=== PATIENT | female | born 2000 | race Caucasian/White ===

== ENCOUNTER 2020-05-26 06:08 | Emergency (ER) | payer OTHER, SELFPAY ==
--- NOTE | ~2020-05-26 | CT_ITS ---
EXAMINATION: CT abdomen pelvis w con INDICATION: Abdominal pain and vomiting TECHNIQUE: Computed tomographic images of the abdomen and pelvis were obtained after the administrati on of 100 cc of Omnipaque 350 intravenous contrast. The dose-length product (DLP) was 423.31 mGy-cm. Automated exposure control and iterative reconstruction technique were employed. COMPARISON: None available FINDINGS: The lung bases are clear. The heart size is normal. The liver, spleen, pancreas, gallbladde r, and adrenal glands are normal. There is a 4 mm cyst in the left kidney upper pole. The right kidne y is unremarkable. No pathologically enlarged abdominal or pelvic lymph nodes are identified. There i s no free intraperitoneal gas or evidence of bowel obstruction. There is an appendicolith in the othe rwise normal-appearing appendix. IMPRESSION: 1. No CT correlate for the patient's symptoms. Reviewed, dictated and finalized at location A. ER M[employer]
[2020-05-26 06:12] VITALS: BP 148/93; PULSE 74; RESP 18; TEMP 36.3; O2SAT 98
[2020-05-26] MEDS: ONDANSETRON INJ 4 MG/2 ML VIAL IV PUSH ×2 (06:36→07:42)
[2020-05-26 06:42] LABS: Basophils Percent Auto 0.2 % (0.2-1.2); Hematocrit 42.9 % (37.0-47.0); Hemoglobin 15.3 g/dL (12.0-15.0); Immature Granulocyte Absolute 0.07 K/mm3 (0.00-0.031); Immature Granulocyte Percent A 0.4 % (0-0.5); Lymphocytes Absolute Auto 1.23 K/mm3 (0.9-3.2); Lymphocytes Percent Auto 7.5 % (18.3-44.2); Mean Corpuscular HGB Conc 35.7 g/dl (32-36); Mean Corpuscular Hemoglobin 32.1 pg (26-34); Mean Corpuscular Volume 89.9 fl (80-100); Mean Platelet Volume 10.7 fl (7.4-10.4); Monocytes Absolute Auto 1.6 K/mm3 (0.1-0.6); Monocytes Percent Auto 9.9 % (2.6-8.5); Neutrophils Absolute Auto 13.5 K/mm3 (1.3-6.7); Platelet Count Result 470 k/mm3 (150-375); Red Blood Count 4.77 M/mm3 (4.2-5.4); Red Cell Distribution Width 11.9 % (11.5-14.5); White Blood Count 16.5 K/mm3 (4.5-10.0)
[2020-05-26 06:54] LABS: Alanine Aminotransferase 23 U/L (4-35); Albumin Level 5.2 g/dL (3.5-5.1); Alkaline Phosphatase 78 U/L (38-126); Anion Gap 18 mmol/L (8-16); Aspartate Amino Transferase 26 U/L (14-36); Bilirubin,Total 1.5 mg/dL (0.2-1.3); Blood Urea Nitrogen 16 mg/dL (7-17); Calcium 10.2 mg/dL (8.4-10.2); Carbon Dioxide 24 mmol/L (22-30); Chloride 101 mmol/L (98-107); Estimated CRCL calculation 95 ml/min; Estimated Glomerular Filt Rate > 60; Glucose 131 mg/dL (65-105); Lipase 38 U/L (23-300); Sodium 143 mmol/L (137-145)
[2020-05-26 07:01] LABS: Add Urine Microscopic? YES; Appearance Urine Clear (Clear); Bilirubin Urine Negative (Negative); Blood Urine Negative (Negative); Color Urine Yellow (Yellow); Glucose Urine UA Negative (Negative); Ketones Urine 2+ mg/dL (Negative); Leukocyte Esterase Ur Negative LEU/UL (Negative); Mucus Urine Heavy /lpf; Nitrate Urine Negative (Negative); Protein Urine 2+ mg/dL (Negative); RBC Urine 0-2 /hpf (0-2); Specific Grav Ur 1.035 (1.001-1.035); Squamous Epithelial Cell Urine Few /hpf (Few); Urobilinogen Urine Negative mg/dL (<2.0)
[2020-05-26] MEDS: LACTATED RINGERS 1,000 ML 999 ML IV CONT (07:42)
[2020-05-26] MEDS: PANTOPRAZOLE SODIUM IV 40 MG VIAL IV PUSH (07:42)
--- NOTE | 2020-05-26 07:45 | ED.NAVMDI ---
HPI - Nausea/Vomiting/Diarrhea General Chief complaint: Nausea/Vomiting/Diarrhea Stated complaint: N/V Time Seen by Provider: 05/26/20 07:20 Source: patient Mode of arrival: ambulatory Limitations: no limitations History of Present Illness HPI Narrative: This patient is a 20 year old female who presents for evaluation of nausea and vomiting. She states she woke up with nausea and vomiting yesterday morning. She has continued to have vomiting today , and she is unable to keep anything down. She also reports diffuse abdominal pain, but she denies diarrhea, fever, chills, cough, sob, sore throat, headache or loss of taste or smell. She does admit Wednesday night she drank alot of Related Data Home Medications Medication Instructions Recorded Confirmed No Home Medications 05/26/20 05/26/20 Allergies Allergy/AdvReac Type Severity Reaction Status Date / Time Sulfa (Sulfonamide Allergy Unknown Unknown Verified 05/26/20 06:27 Antibiotics) PMFSH Social History Social History Gender identity (if verbalized by the patient): Female Course Vital Signs Vital signs: Vital Signs Temperature 97.4 F L 05/26/20 06:12 Pulse Rate 74 05/26/20 06:12 Respiratory Rate 18 05/26/20 06:12 Blood Pressure 148/93 H 05/26/20 06:12 Pulse Oximetry 98 05/26/20 06:12 Temperature 97.4 F L 05/26/20 06:12 Pulse Rate 74 05/26/20 06:12 Respiratory Rate 18 05/26/20 06:12 Blood Pressure 148/93 H 05/26/20 06:12 Pulse Oximetry 98 05/26/20 06:12 MDM - Nausea/Vomiting/Diarrhea Lab Data Result diagrams: 05/26/20 06:31 05/26/20 06:31 Labs: Lab Results 05/26/20 05/26/20 05/26/20 Range/Units 06:31 06:31 06:31 WBC 16.5 H (4.5-10.0) K/mm3 RBC 4.77 (4.2-5.4) M/mm3 Hgb 15.3 H (12.0-15.0) g/dL Hct 42.9 (37.0-47.0) % MCV 89.9 (80-100) fl MCH 32.1 (26-34) pg MCHC 35.7 (32-36) g/dl RDW 11.9 (11.5-14.5) % Plt Count 470 H (150-375) k/mm3 MPV 10.7 H (7.4-10.4) fl Immature Gran % (Auto) 0.4 (0-0.5) % Neut % (Auto) 82.0 H (45.5-73.1) % Lymph % (Auto) 7.5 L (18.3-44.2) % [place] % (Auto) 9.9 H (2.6-8.5) % Eos % (Auto) 0.0 (0-4.4) % Baso % (Auto) 0.2 (0.2-1.2) % Lymph # (Auto) 1.23 (0.9-3.2) K/mm3 [place] # (Auto) 1.6 H (0.1-0.6) K/mm3 Eos # (Auto) 0.0 (0-0.3) K/mm3 Baso # (Auto) 0.0 (0.0-0.1) K/mm3 Abs Immat Gran (auto) 0.07 H (0.00-0.031) K/mm3 Absolute Neuts (auto) 13.5 H (1.3-6.7) K/mm3 Absolute Nucleated RBC 0.0 (0.0-0.012) K/mm3 Nucleated RBC % 0.0 (0.0-0.2) % Sodium 143 (137-145) mmol/L Potassium 3.0 L (3.4-5.0) mmol/L Chloride 101 (98-107) mmol/L Carbon Dioxide 24 (22-30) mmol/L Anion Gap 18 H (8-16) mmol/L BUN 16 (7-17) mg/dL Creatinine 0.80 (0.7-1.0) mg/dL Estim Creat Clear Calc 95 ml/min Estimated GFR > 60 (59 - ) Glucose 131 H (65-105) mg/dL Calcium 10.2 (8.4-10.2) mg/dL Total Bilirubin 1.5 H (0.2-1.3) mg/dL AST 26 (14-36) U/L ALT 23 (4-35) U/L Alkaline Phosphatase 78 (38-126) U/L Total Protein 8.0 (6.3-8.2) g/dL Albumin 5.2 H (3.5-5.1) g/dL Lipase 38 (23-300) U/L Urine Color Yellow (Yellow) Urine Appearance Clear (Clear) Urine pH 6.0 (5.0-9.0) Ur Specific [place] 1.035 (1.001-1.035) Urine Protein 2+ H (Negative) mg/dL Urine Glucose (UA) Negative (Negative) mg/dL Urine Ketones 2+ H (Negative) mg/dL Ur Blood (Man) Negative (Negative) Urine Nitrate Negative (Negative) Urine Bilirubin Negative (Negative) Urine Urobilinogen Negative (<2.0) mg/dL Leukocyte Esterase Rfl Negative (Negative) VLADIMIR/UL Urine RBC 0-2 (0-2) /hpf Urine WBC 10-15 H /hpf Ur Squamous Epith Cells Few (Few) /hpf Urine Mucus Heavy H /lpf UCG Bedside Result Negative
--- NOTE | 2020-05-26 07:55 | ED.NAVMDI ---
HPI - Nausea/Vomiting/Diarrhea General Chief complaint: Nausea/Vomiting/Diarrhea Stated complaint: N/V Time Seen by Provider: 05/26/20 07:20 Source: patient Mode of arrival: ambulatory Limitations: no limitations History of Present Illness HPI Narrative: This patient is a 20 year old female who presents for evaluation of nausea and vomiting. She states yesterday morning she developed nausea and vomiting, and it has continued to today. She is unable to keep anything down. She also complains of diffuse abdominal pain, but she denies diarrhea, fever, cough, sob, headache or loss of taste or smell. She does admit to drinking alot of alcohol Timothy night. She describes abdominal pain as burning. She reports history of GI when she was in high school. She states at that time she was on Zantac for too much acid . She had daily nausea and vomiting at that time. She does not take antacids any more. Related Data Allergies Allergy/AdvReac Type Severity Reaction Status Date / Time Sulfa (Sulfonamide Allergy Unknown Unknown Verified 05/26/20 06:27 Antibiotics) Review of Systems Review of Systems: All systems reviewed & are unremarkable except as noted in HPI and below Constitutional: Constitutional: Denies chills and Denies fever(s) Respiratory: Respiratory: Denies cough and Denies dyspnea Gastrointestinal: Gastrointestinal: Reports abdominal pain, Reports nausea and Reports vomiting Musculoskeletal: Musculoskeletal: Denies back pain PMFSH Past Medical History Medical History (Updated 05/26/20 @ 09:34 by Gricelda Malin MD) GERD (gastroesophageal reflux disease) Surgical History Surgical History (Updated 05/26/20 @ 08:00 by Gricelda Malin MD) No significant past surgical history Social History Social History (Updated 05/26/20 @ 08:00 by Gricelda Malin MD) Alcohol intake: current Gender identity (if verbalized by the patient): Female Exam Const: General: alert Orientation/consciousness: patient oriented x3 HENMT: Face and sinus: face symmetric Mouth: Yes lip normal, Yes tongue normal and Yes moist mucous membranes Eyes: EOM: EOMs intact bilaterally Chest: Chest palpation & inspection: normal inspection of the chest Resp: Effort & Inspection: normal respiratory effort and no retractions Auscultation: clear to auscultation bilaterally Cardio: Rate: regular rate Rhythm: regular rhythm Heart sounds: no murmurs GI: GI Palp: Yes Soft to palpation, Yes Tenderness to palpation present (GI) (diffuse), No Guarding due to palpation present (GI), No Rigid due to palpation and No Hernia present Skin: General skin exam: normal color Rashes: no rashes Neuro: General: patient oriented x3 and moves all extremities Extrem: General: no pedal edema Course Reevaluation(s) Reevaluation #1: PAtient reports she feels better. She is able to drink and eat crackers with out nausea and vomiting. I discussed labs and cT . They report no further questions or concerns. Date: 05/26/20 Time: 09:30 Vital Signs Vital signs: Vital Signs Temperature 97.4 F L 05/26/20 06:12 Pulse Rate 74 05/26/20 06:12 Respiratory Rate 18 05/26/20 06:12 Blood Pressure 148/93 H 05/26/20 06:12 Pulse Oximetry 98 05/26/20 06:12 Temperature 97.4 F L 05/26/20 06:12 Pulse Rate 80 05/26/20 10:25 Respiratory Rate 16 05/26/20 10:25 Blood Pressure 159/85 H 05/26/20 10:25 Pulse Oximetry 98 05/26/20 10:25 MDM - Nausea/Vomiting/Diarrhea Lab Data Attestation: I reviewed the patient's lab results. Result diagrams: 05/26/20 06:31 05/26/20 06:31 Labs: Lab Results 05/26/20 05/26/20 05/26/20 Range/Units 06:31 06:31 06:31 WBC 16.5 H (4.5-10.0) K/mm3 RBC 4.77 (4.2-5.4) M/mm3 Hgb 15.3 H (12.0-15.0) g/dL Hct 42.9 (37.0-47.0) % MCV 89.9 (80-100) fl MCH 32.1 (26-34) pg MCHC 35.7 (32-36) g/dl RDW 11.9 (11.5-14.5) % Plt Co
[2020-05-26] MEDS: PROMETHAZINE HCL 25 MG/ML AMPUL 12.5 MG IV PUSH ×2 (08:18→10:07)
[2020-05-26] MEDS: POTASSIUM CHLORIDE 20 MEQ TABLET PO (09:37)
[2020-05-26 10:25] VITALS: BP 159/85; PULSE 80; RESP 16; O2SAT 98
== END 2020-05-26 10:25 | disposition home or self-care (01) ==
PROVIDERS: Emergency Medicine; Emergency Provider General Practice
DX: E86.0 Dehydration (principal); R11.2 Nausea with vomiting, unspecified; E87.6 Hypokalemia; K21.9 Gastro-esophageal reflux disease without esophagitis
CPT/HCPCS: 36415; 74177; 80053; 81001; 81025; 83690; 85025; 87086; 96361; 96374; 96375; 96376; 99284; A9270; C9113; J2405; J2550; J7120; Q9967

== ENCOUNTER 2020-06-04 11:43 | Outpatient (NON) | payer OTHER, SELFPAY ==
[2020-06-05 14:13] LABS: SARS-CoV-2 RNA PCR Negative
== END 2020-06-04 11:44 ==
LOC: ANHCOVIDDT 11:46
PROVIDERS: PCP Family Medicine; Visit Provider Nurse Practitioner Family
DX: Z20.828 Contact with and (suspected) exposure to other viral communicable diseases (principal)
CPT/HCPCS: 87635; C9803; U0003

== ENCOUNTER 2021-01-18 13:03 | Emergency (ER) | payer OTHER, SELFPAY ==
[2021-01-18 13:15] VITALS: BP 126/75; PULSE 84; RESP 16; TEMP 36.7; O2SAT 99
--- NOTE | 2021-01-18 14:01 | ED.GENADULT ---
HPI - General Adult General Chief complaint: Skin/Abscess/Foreign Body Stated complaint: Anal Pain Source: patient Mode of arrival: ambulatory Limitations: no limitations History of Present Illness HPI narrative: Patient presents for evaluation of rectal pain and drainage. She states she has had rectal pain for the last week and a half and has noted a white/yellow drainage from the affected area over the last week. She states the pain is excruciating, rated 10 out of 10 in severity. No history of similar symptoms. She reports chills and nausea without fever or vomiting. She is currently menstruating. She is unable to tell me whether she has a history of regular menstruation. She is unable to tell me whether she has any vaginal discharge. She has some chronic abdominal pain which she attributes to IBS. She does not believe she has any increased or change in frequency/character of her abdominal pain. She states she has fluctuations between constipation and diarrhea with her IBS. She has been having about four bowel movements per day over the course the last week. She thought that during one episode she may have had blood in her stool but she does not believe she has had any mucus. No history of abdominal surgeries. When asked about sexual orientation, she does not directly answer the question. She states she has not been sexually active in the last 2 to 3 years. She denies inserting any sex toys in the affected area. No additional complaints or concerns. Related Data Allergies Allergy/AdvReac Type Severity Reaction Status Date / Time Sulfa (Sulfonamide Allergy Unknown Unknown Verified 05/26/20 06:27 Antibiotics) Review of Systems Review of Systems: Narrative: CONSTITUTIONAL: Denies fever, chills, or sweats. EYES: Denies visual changes, redness, or discharge. ENT: Denies rhinorrhea, congestion, sore throat, or otalgia. CARDIOVASCULAR: Denies chest pain, palpitations, or edema. RESPIRATORY: Denies cough or dyspnea. GASTROINTESTINAL: Reports rectal pain and yellow/white discharge. Reports chronic abdominal pain, not worse as of late. Reports chronic nausea without vomiting, not worse as of late. Reports multiple episodes of diarrhea GENITOURINARY: Denies dysuria or hematuria. SKIN: Denies rash or itching. MUSCULOSKELETAL: Denies back pain, joint pain, or myalgia. NEUROLOGIC: Denies headache, numbness, dizziness, or weakness. PSYCHIATRIC: Denies anxiety or depression. PMFSH Past Medical History Medical History Anxiety GERD (gastroesophageal reflux disease) IBS (irritable bowel syndrome) Surgical History Surgical History No significant past surgical history Family History Family History Mother No pertinent past medical history Social History Social History (Updated 01/18/21 @ 14:06 by Giovany Tapia [facility], ) Tobacco type: e-cigarettes/vaping Alcohol intake: current Substance use: current Substance use type: marijuana Living arrangements: with family Gender identity (if verbalized by the patient): Female Spiritual care concerns: No Exam Narrative: Exam Narrative: GENERAL: Well-appearing, well-nourished, and in no acute distress. HEAD: Normocephalic, atraumatic. EYES: PERRLA and EOMI. ENT: Nares clear, no rhinorrhea or epistaxis. Mucous membranes moist. Oropharynx without tonsillar hypertrophy exudate or other lesions. Bilateral TMs pearly pinto nonbulging NECK: Supple. No adenopathy or masses. No carotid bruits or JVD CHEST: Clear to auscultation. No respiratory distress. No wheezes rales or rhonchi HEART: Regular rate and rhythm. No murmur heard. Normal peripheral pulses. ABDOMEN: Soft, nontender, nondistended, normal active bowel sounds. EXTREMITIES: Normal range of motion. No edema. GENITAL: Tenderness o
== END 2021-01-18 14:19 | disposition short-term general hospital (02) ==
PROVIDERS: Emergency Provider Nurse Practitioner; PCP Family Medicine
DX: K61.0 Anal abscess (principal); F17.200 Nicotine dependence, unspecified, uncomplicated; K21.9 Gastro-esophageal reflux disease without esophagitis
CPT/HCPCS: 99213; G0463

== ENCOUNTER 2021-01-18 15:06 | Emergency (ER) | payer OTHER, SELFPAY ==
--- NOTE | ~2021-01-18 | CT_ITS ---
EXAMINATION: CT abdomen pelvis w con DATE: 01/18/2021 19:27 INDICATION: Perirectal abscess. Abdominal pain and vomiting. TECHNIQUE: Computed tomography (CT) of the abdomen and pelvis was performed with 100 mL Omnipaque 350 intravenous contrast. Automated exposure control and iterative reconstruction technique were employe d. The dose-length product was 269.74 mGy-cm. COMPARISON: CT abdomen and pelvis 05/26/2020 FINDINGS: The visualized portions of the lung bases are clear without pneumonia or pleural effusion. The heart size is normal. No pericardial effusion. The liver, gallbladder, spleen, pancreas, adrenal glands, and kidneys are normal. There is a tampon in the vagina. There are no dilated loops of bowel. The appendix is normal. There is a 10 x 5 mm left perianal abscess. There are no pathologically enla rged lymph nodes. There is trace pelvic ascites. The bones are unremarkable. IMPRESSION: 1. 10 x 5 mm left perianal abscess. Reviewed, dictated and finalized at location A.
[2021-01-18 15:27] VITALS: BP 141/80; PULSE 93; RESP 16; TEMP 37.1; O2SAT 100
--- NOTE | 2021-01-18 16:06 | ED.GENADULT ---
HPI - General Adult General Chief complaint: Wound/Laceration Stated complaint: Rectal Pain Time Seen by Provider: 01/18/21 15:24 Source: patient Mode of arrival: ambulatory Limitations: no limitations History of Present Illness HPI narrative: This is a 20 year old female that presents to the ER for rectal pain for about 1 week. Reports a possible abscess. She has had some drainage from the area. She was seen at urgent care for this and sent here for further evaluation. Reports abdominal pain and history of IBS. Denies fever or vomiting. Related Data Home Medications Medication Instructions Recorded Confirmed bupropion HCl [Wellbutrin SR] 100 mg PO QAM 01/18/21 01/18/21 pantoprazole [Protonix] 40 mg PO HS 01/18/21 Allergies Allergy/AdvReac Type Severity Reaction Status Date / Time Sulfa (Sulfonamide Allergy Unknown Unknown Verified 01/18/21 14:29 Antibiotics) Review of Systems Review of Systems: Narrative: CONSTITUTIONAL: Denies fever GASTROINTESTINAL: Reports abdominal pain, nausea. Denies vomiting All systems reviewed & are unremarkable except as noted in HPI and below PMFSH Past Medical History Medical History Anxiety GERD (gastroesophageal reflux disease) IBS (irritable bowel syndrome) Surgical History Surgical History No significant past surgical history Family History Family History Mother No pertinent past medical history Social History Social History (Updated 01/18/21 @ 14:06 by MAGGIE Farfan, ) Tobacco type: e-cigarettes/vaping Alcohol intake: current Substance use: current Substance use type: marijuana Gender identity (if verbalized by the patient): Female Spiritual care concerns: No Exam Narrative: Exam Narrative: GENERAL: Well-appearing, well-nourished, and in no acute distress. HEAD: Normocephalic, atraumatic. EYES: EOMI. CHEST: Clear to auscultation. No respiratory distress. No wheezes rales or rhonchi HEART: Regular rate and rhythm. No murmur heard. Normal peripheral pulses. ABDOMEN: Soft, nontender, nondistended, normal active bowel sounds. EXTREMITIES: Normal range of motion. No edema. SKIN: Warm, dry, no rash. NEURO: No focal deficits. Alert and oriented x3. PSYCH: Normal mood and affect RECTAL: Perianal area with 2cm area of erythema with central fluctuance, spontaneously draining pus Course Vital Signs Vital signs: Vital Signs Temperature 98.8 F 01/18/21 15:27 Pulse Rate 93 01/18/21 15:27 Respiratory Rate 16 01/18/21 15:27 Blood Pressure 141/80 H 01/18/21 15:27 Pulse Oximetry 100 01/18/21 15:27 Temperature 98.5 F 01/18/21 17:00 Pulse Rate 107 H 01/18/21 17:00 Respiratory Rate 18 01/18/21 17:00 Blood Pressure 127/80 01/18/21 17:00 Pulse Oximetry 99 01/18/21 17:00 Procedures Abscess I/D suresh-rectal: Date of Incision: 01/18/21 Side (if applicable): left Local Anesthetic: lidocaine 1% Amount of anesthesia used (mL): 1 Technique: other (Wound was spontaneously draining) Packing used?: none I&D Results: Pus and Blood Medical Decision Making MDM Narrative Medical decision making narrative: Patient presents the emergency department for perianal abscess. Patient is noted the area of pain over the last couple weeks. Over the last week she has noticed some drainage to the area. She is afebrile and nontoxic-appearing. CBC is without leukocytosis. Metabolic panel with mild hypokalemia with potassium of 3.3. UA without evidence of infection. Bedside test is negative. CT scan of the abdomen and pelvis was obtained to further elucidate extent of abscess. Shows that the abscess is 10 mm x 5 mm. I did numb the area and express pus that was spontaneously draining. Wound was sent fo
[2021-01-18 16:42] LABS: Basophils Absolute Auto 0.1 K/mm3 (0.0-0.1); Basophils Percent Auto 0.9 % (0.2-1.2); Eosinophils Absolute Auto 0.1 K/mm3 (0-0.3); Eosinophils Percent Auto 0.7 % (0-4.4); Hemoglobin 14.8 g/dL (12.0-15.0); Immature Granulocyte Absolute 0.02 K/mm3 (0.00-0.031); Immature Granulocyte Percent A 0.2 % (0-0.5); Lymphocytes Absolute Auto 1.03 K/mm3 (0.9-3.2); Mean Corpuscular HGB Conc 32.9 g/dl (32-36); Mean Corpuscular Hemoglobin 31.2 pg (26-34); Mean Corpuscular Volume 94.9 fl (80-100); Mean Platelet Volume 10.4 fl (7.4-10.4); Monocytes Absolute Auto 0.7 K/mm3 (0.1-0.6); Monocytes Percent Auto 7.9 % (2.6-8.5); Neutrophils Absolute Auto 6.7 K/mm3 (1.3-6.7); Neutrophils Percent Auto 78.3 % (45.5-73.1); Platelet Count Result 292 k/mm3 (150-375); Red Blood Count 4.74 M/mm3 (4.2-5.4); Red Cell Distribution Width 11.9 % (11.5-14.5); White Blood Count 8.6 K/mm3 (4.5-10.0)
[2021-01-18 16:57] LABS: Alanine Aminotransferase 16 U/L (4-35); Albumin Level 4.6 g/dL (3.5-5.1); Alkaline Phosphatase 55 U/L (38-126); Anion Gap 9 mmol/L (8-16); Aspartate Amino Transferase 28 U/L (14-36); Bilirubin,Total 0.4 mg/dL (0.2-1.3); Blood Urea Nitrogen 8 mg/dL (7-17); Calcium 9.6 mg/dL (8.4-10.2); Carbon Dioxide 30 mmol/L (22-30); Chloride 104 mmol/L (98-107); Estimated CRCL calculation 84 ml/min; Estimated Glomerular Filt Rate > 60; Glucose 99 mg/dL (65-105); Lipase 64 U/L (23-300); Potassium 3.3 mmol/L (3.4-5.0); Sodium 143 mmol/L (137-145)
[2021-01-18 17:00] VITALS: BP 127/80; PULSE 107; RESP 18; TEMP 36.9; O2SAT 99
[2021-01-18 17:15] LABS: Add Urine Microscopic? YES; Amorphous Sediment Urine Few; Appearance Urine Clear (Clear); Bacteria Urine Trace /hpf; Bilirubin Urine Negative (Negative); Blood Urine Negative (Negative); Color Urine Yellow (Yellow); Glucose Urine UA Negative (Negative); Ketones Urine Negative (Negative); Leukocyte Esterase Ur Negative LEU/UL (Negative); Mucus Urine Rare /lpf; Nitrate Urine Negative (Negative); Protein Urine 1+ mg/dL (Negative); Specific Grav Ur 1.013 (1.001-1.035); Squamous Epithelial Cell Urine Rare /hpf (Few); Urobilinogen Urine Negative mg/dL (<2.0); WBC Urine 0-3 /hpf
[2021-01-18] MEDS: AMOXICILLIN/CLAVULANATE K 875-125 MG TAB 1 TABLET PO (21:12)
== END 2021-01-18 21:19 | disposition home or self-care (01) ==
PROVIDERS: Physician Assistant; Emergency Provider Emergency Medicine; PCP Family Medicine
DX: K61.0 Anal abscess (principal); E87.6 Hypokalemia; F41.9 Anxiety disorder, unspecified; K21.9 Gastro-esophageal reflux disease without esophagitis
CPT/HCPCS: 36415; 74177; 80053; 81001; 81025; 83690; 85025; 87070; 87077; 87186; 87205; 99284; A9270; Q9967

== ENCOUNTER 2023-03-16 18:32 | Emergency (ER) | payer OTHER, SELFPAY ==
--- NOTE | ~2023-03-16 | CT_ITS ---
EXAMINATION: CT abdomen pelvis w con DATE: 03/16/2023 23:39 INDICATION: Suprapubic abdominal pain. TECHNIQUE: Computed tomography (CT) of the abdomen and pelvis was performed with 100 mL Omnipaque 350 intravenous contrast. Automated exposure control and iterative reconstruction technique were employe d. The dose-length product was 338.68 mGy-cm. COMPARISON: CT abdomen and pelvis 01/18/2021 FINDINGS: The visualized portions of the lung bases are clear without pneumonia or pleural effusion. The heart size is normal. No pericardial effusion. The liver, gallbladder, spleen, pancreas, adrenal glands, and right kidney are normal. There is a 6 mm cyst in left kidney. There are no dilated loops of bowel. There is a 1.8 cm corpus luteum cyst in right ovary. The appendix is normal. There are no p athologically enlarged lymph nodes. There is physiologic fluid in the pelvis. There is mild thoracic spondylosis. IMPRESSION: 1. No specific etiology for the patient's symptoms. Reviewed, dictated and finalized at location A.
--- NOTE | ~2023-03-16 | US_ITS ---
EXAMINATION: US pelvic complete w TV DATE: 03/17/2023 07:30 INDICATION: Pelvic pain. TECHNIQUE: Multiple transabdominal and transvaginal sonographic images of the pelvis were obtained. COMPARISON: CT abdomen and pelvis 03/16/2023 FINDINGS: TRANSABDOMINAL ULTRASOUND: The uterus measures 6.8 x 3.4 x 4.1 cm. There is physiologic free fluid in the pelvis. TRANSVAGINAL ULTRASOUND: The endometrial complex measures 10 mm in thickness. The right ovary measures 3.5 x 2.6 x 2.4 cm. The left ovary measures 2.6 x 1.3 x 1.4 cm. There is normal vascular flow in the ovaries. IMPRESSION: 1. Normal pelvis. Reviewed, dictated and finalized at location A. IMPRESSION: 1. Normal pelvis.
[2023-03-16 19:24] LABS: Basophils Absolute Auto 0.1 K/mm3 (0.0-0.1); Eosinophils Absolute Auto 0.1 K/mm3 (0-0.3); Eosinophils Percent Auto 1.5 % (0-4.4); Hematocrit 49.1 % (37.0-47.0); Hemoglobin 16.2 g/dL (12.0-15.0); Immature Granulocyte Absolute 0.01 K/mm3 (0.00-0.031); Immature Granulocyte Percent A 0.1 % (0-0.5); Lymphocytes Absolute Auto 1.81 K/mm3 (0.9-3.2); Lymphocytes Percent Auto 22.1 % (18.3-44.2); Mean Corpuscular Hemoglobin 31.5 pg (26-34); Mean Corpuscular Volume 95.5 fl (80-100); Mean Platelet Volume 10.6 fl (7.4-10.4); Monocytes Absolute Auto 0.6 K/mm3 (0.1-0.6); Monocytes Percent Auto 6.8 % (2.6-8.5); Neutrophils Absolute Auto 5.6 K/mm3 (1.3-6.7); Neutrophils Percent Auto 68.5 % (45.5-73.1); Platelet Count Result 302 k/mm3 (150-375); Red Blood Count 5.14 M/mm3 (4.2-5.4); Red Cell Distribution Width 12.2 % (11.5-14.5); White Blood Count 8.2 K/mm3 (4.5-10.0)
[2023-03-16 19:30] VITALS: BP 153/89; PULSE 72; RESP 15; TEMP 36.8; O2SAT 100
[2023-03-16 19:33] LABS: Appearance Urine Clear (Clear); Bilirubin Urine Negative (Negative); Blood Urine Negative (Negative); Color Urine Yellow (Yellow); Glucose Urine UA Negative (Negative); Ketones Urine 1+ mg/dL (Negative); Leukocyte Esterase Ur Negative LEU/UL (Negative); Nitrate Urine Negative (Negative); Protein Urine Negative (Negative); Specific Grav Ur 1.018 (1.001-1.035)
[2023-03-16 19:35] LABS: Alanine Aminotransferase 22 U/L (6-35); Alkaline Phosphatase 59 U/L (38-126); Anion Gap 9 mmol/L (8-16); Aspartate Amino Transferase 26 U/L (14-36); Bilirubin,Total 0.8 mg/dL (0.2-1.3); Blood Urea Nitrogen 11 mg/dL (7-17); Calcium 9.8 mg/dL (8.4-10.2); Carbon Dioxide 27 mmol/L (22-30); Chloride 102 mmol/L (98-107); Estimated CRCL calculation 94 ml/min; Estimated Glomerular Filt Rate > 60; Glucose 109 mg/dL (65-110); Lipase 106 U/L (23-300); Potassium 4.1 mmol/L (3.4-5.0); Sodium 138 mmol/L (137-145)
[2023-03-16 19:38] LABS: Add Urine Microscopic? NO
--- NOTE | 2023-03-16 23:08 | ED.ABDPAIN ---
HPI - Abdominal Pain General Chief Complaint: Abdominal Pain Stated Complaint: abd pain Time Seen by Provider: 03/16/23 21:49 History of Present Illness HPI narrative: This is a 22-year-old female in process of transitioning to male, who presents emergency department complaining of intermittent bilateral lower abdominal pain for the past 2 weeks. The patient describes the pain as sharp, rated 8/10, lasting 1 to 5 minutes at a time. The patient states this began on the right side but is now present on the left. This is accompanied by nausea but no vomiting or diarrhea. Related Data Home Medications Medication Instructions Recorded Confirmed bupropion HCl 100 mg tablet,12 hr 100 mg PO QAM 01/18/21 01/18/21 sustained-release (Wellbutrin SR) pantoprazole 40 mg tablet,delayed 40 mg PO HS 01/18/21 release (Protonix) Allergies Allergy/AdvReac Type Severity Reaction Status Date / Time Sulfa (Sulfonamide Allergy Unknown Unknown Verified 03/16/23 19:35 Antibiotics) Review of Systems Review of Systems: CONSTITUTIONAL: Denies fever, chills, or sweats. CARDIOVASCULAR: Denies chest pain, palpitations, or edema. RESPIRATORY: Denies cough or dyspnea. GASTROINTESTINAL: Bilateral lower abdominal pain and nausea denies vomiting, or diarrhea. GENITOURINARY: Denies dysuria or hematuria. SKIN: Denies rash or itching. MUSCULOSKELETAL: Denies back pain, joint pain, or myalgia. NEUROLOGIC: Denies headache, numbness, dizziness, or weakness. PSYCHIATRIC: Denies anxiety or depression. [facility] Past Medical History Medical History Anxiety GERD (gastroesophageal reflux disease) IBS (irritable bowel syndrome) Surgical History Surgical History No significant past surgical history Family History Family History Mother No pertinent past medical history Social History Social History Tobacco type: e-cigarettes/vaping Alcohol intake: current Substance use: current Substance use type: marijuana Living arrangements: with family Gender identity (if verbalized by the patient): Female Spiritual care concerns: No Exam Narrative: GENERAL: Well-developed, well-nourished, and in no acute distress. HEAD: Normocephalic, atraumatic. EYES: PERRLA and EOMI. CHEST: Clear to auscultation. No respiratory distress. No wheezes rales or rhonchi HEART: Regular rate and rhythm. No murmur heard. Normal peripheral pulses. ABDOMEN: Soft, mild tenderness to palpation in the bilateral lower quadrants, without rebound or guarding, nondistended, normal active bowel sounds. Mild left CVA tenderness to palpation. No right CVA tenderness EXTREMITIES: Normal range of motion. No edema. SKIN: Warm, dry, no rash. NEURO: Alert and oriented x3. Moving all 4 limbs purposefully. PSYCH: Normal mood and affect. Course Course Emergency Course: 04:21 - STAT rad interpretation of CT abdomen pelvis demonstrates a corpus luteal cyst with a small amount of physiologic fluid but is otherwise not concerning for acute process including appendicitis. I obtain an ultrasound, however interpretation by stat read is delayed. The patient requests to be discharged. CBC demonstrates mildly increased hemoglobin of 16.2, chemistry is unremarkable. UA not concerning for UTI. Will discharge AGAINST MEDICAL ADVICE. I discussed the risks versus benefits of discharge. The patient voiced understanding and politely insists on discharge. Discussed return and emergency precautions including signs/symptoms of acute abdomen. The patient voiced understanding. All questions answered to her satisfaction. Vital Signs Vital signs: Vital Signs Temperature 98.3 F 03/16/23 19:30 Pulse Rate 72 03/16/23 19:30 Respiratory Rate 15
[2023-03-16 23:52] VITALS: BP 128/79; PULSE 73; RESP 16; O2SAT 100
[2023-03-16] MEDS: ONDANSETRON HCL ODT 4 MG TABLET PO (23:53)
[2023-03-17 04:54] VITALS: BP 134/78; PULSE 76; RESP 14; O2SAT 98
== END 2023-03-17 04:56 | disposition left against medical advice (07) ==
PROVIDERS: Emergency Provider Preventive Medicine Aerospace Medicine; PCP Family Medicine
DX: R10.32 Left lower quadrant pain (principal); R10.31 Right lower quadrant pain; F41.9 Anxiety disorder, unspecified; K21.9 Gastro-esophageal reflux disease without esophagitis; K58.9 Irritable bowel syndrome, unspecified; F17.290 Nicotine dependence, other tobacco product, uncomplicated
CPT/HCPCS: 36415; 74177; 76830; 76856; 80053; 81003; 81025; 83690; 85025; 99284; A9270; Q9967